=== PATIENT | female | born 1930 ===

== ENCOUNTER 2017-03-03 10:35 | Day surgery (SDC) | payer MEDICARE, MEDICAID ==
[2017-03-02 11:58] VITALS: BMI 33.2
[2017-03-03] MEDS ORDERED: Phenylephrine 10 mg/ml Inj ONE (11:11)
[2017-03-03] MEDS ORDERED: Etomidate 20 mg/10ml Inj IV ONE (11:12)
[2017-03-03] MEDS ORDERED: Succinylcholine 200 mg/10 ml Inj IV ONE (11:12)
[2017-03-03] MEDS ORDERED: ceFAZolin IV 1 gm in Dextrose 0 GM/0 ML BAG IVPB ONE (11:24)
[2017-03-03] MEDS ORDERED: Lactated Ringer's 1,000 ML IV ONE (11:45)
[2017-03-03] MEDS ORDERED: Propofol 10 mg/ml Inj (20 ML) ONE (11:47)
[2017-03-03] MEDS ORDERED: cefTRIAXone (Rocephin) 1 gm Inj ONE (11:51)
[2017-03-03] MEDS ORDERED: Lidocaine 2% Jelly (Uro-Jet) ONE (11:52)
[2017-03-03] MEDS ORDERED: Naloxone 0.4 mg/ml Inj (Adult) ONE (12:57)
[2017-03-03] MEDS ORDERED: Lactated Ringer's 1,000 ML IV SCH (13:15)
[2017-03-03 13:52] VITALS: RESP 18
[2017-03-03] MEDS ORDERED: Oxycodone/Acetaminophen 5/325 mg Tab PO PRN (14:28)
[2017-03-03] MEDS ORDERED: Oxycodone/Acetaminophen 5/325 mg Tab PO ONE (15:17)
[2017-03-03 15:59] VITALS: BP 149/71; PULSE 91; TEMP 98.3; O2SAT 98
--- NOTE | 2017-03-03 23:48 | OP ---
PROCEDURE DATE: 03/03/2017 PREOPERATIVE DIAGNOSES: Gross hematuria, history of bladder tumor. POSTOPERATIVE DIAGNOSES: Gross hematuria and recurrent bladder tumor. DESCRIPTION OF PROCEDURE: The patient was placed in the operating room table in the dorsal lithotomy position. The area of the groin was draped and prepped in the sterile manner. Cystoscopy with a resectoscope was initially done. There were areas in the bladder that were hyperemic. She is on Xarelto, so I cauterized those areas, but curiously looking at the ureteral orifices, on the right on there appeared to be a slight hyperemic appearance to it. I decided to do a ureteroscopy and within about 1 cm inside the ureter on the right side, there was noted to be recurrent bladder tumor. I passed the ureteroscope to the level of the renal pelvis, did not see any other recurrence, came back down and at this time, I secured a laser and began to laser that tissue. It was in a difficult spot because the scope would either come out of the ureter or engage back in and so I tried what I could to cauterize the entire area with the laser. Once this was done, I removed the securing guidewire. She had some minimal residual bleeding. I am hopeful that is going to stop on its own. Rest of the bladder essentially was unremarkable. The ureteroscope was then removed. The patient was taken from the operative room in good condition. Love Dumont MD
== END 2017-03-03 17:30 | disposition home or self-care (01) ==
LOC: H.OPSURG 10:35
PROVIDERS: ATTEND Urology
DX: R31.0 Gross hematuria (principal); D49.4 Neoplasm of unspecified behavior of bladder
CPT/HCPCS: 52234; 82948; J0330; J0696; J1170; J2001; J2310; J2370; J2405; J3010; J7120